=== PATIENT | male | born 1950 | race Caucasian/White ===

== ENCOUNTER 2017-01-14 03:20 | Observation (INO) | payer OTHER ==
[~2017-01-14] VITALS: Ht 182.9 cm; Wt 116.3 kg
[2017-01-14 04:10] LABS: HEMATOCRIT 36.1 % (38.0-50.0); MCH 28.5 PG (29.0-34.0); MCHC 34.1 G/DL (30.0-36.0); MCV 83.6 FL (86-99); MEAN PLAT.VOLUME 9.6 uM^3 (9.0-12.4); PLATELET COUNT 177 K/uL (156-360); RBC DIS.WIDTH-CV 13.7 % (11.8-14.6); RBC DIS.WIDTH-SD 40.7 % (39-53); RED BLOOD COUNT 4.32 M/uL (4.00-5.50); WHITE BLOOD COUNT 10.4 K/uL (4.1-10.2)
[2017-01-14 04:18] LABS: CHLORIDE 104 mEq/L (99-109); POTASSIUM 4.4 mEq/L (3.7-5.4); SODIUM 138 mEq/L (136-147)
[2017-01-14 04:20] LABS: GLUCOSE 223 mg/dL (70-99)
[2017-01-14 04:21] LABS: ANION GAP 11 MEQ/L (2-14)
[2017-01-14 04:22] LABS: TOTAL BILIRUBIN 1.4 mg/dL (0.0-1.0)
[2017-01-14 04:23] LABS: ALKALINE PHOSPHATASE 87 IU/L (3-129)
[2017-01-14 04:25] LABS: UREA NITROGEN (BUN) 35 mg/dL (9-23)
[2017-01-14 04:29] LABS: GFR ESTIMATE (CALCULATED) 50 mL/min/
[2017-01-14] MEDS ORDERED: TERAZOSIN HCL10 MG PO (12:42)
[2017-01-14] MEDS ORDERED: LISINOPRIL5 MG PO (12:43)
[2017-01-14] MEDS ORDERED: CLONIDINE HCL0.2 MG PO (12:43)
[2017-01-14] MEDS ORDERED: PANTOPRAZOLE SO40 MG PO (12:43)
[2017-01-14] MEDS ORDERED: LEVO-T75 MCG PO (12:43)
[2017-01-14] MEDS ORDERED: COLCRYS0.6 MG PO (12:44)
[2017-01-14] MEDS ORDERED: METHADONE10 MG PO (12:44)
[2017-01-14] MEDS ORDERED: ASPIR-TRIN325 M1 PO (12:44)
[2017-01-14] MEDS ORDERED: ALLOPURINOL300 MG PO (12:45)
[2017-01-14] MEDS ORDERED: GABAPENTIN300 MG PO (12:45)
[2017-01-14] MEDS ORDERED: PROGRAF1 MG PO (12:45)
[2017-01-14] MEDS ORDERED: HYDROCHLOROTHIA25 MG PO (12:46)
[2017-01-14] MEDS ORDERED: HYDROCODON-ACE1 EAC9 PO (12:46)
[2017-01-14 16:40] LABS: TROP-I INTERPRETATION NEGATIVE; TROPONIN-I 0.06 ng/mL (0.0-0.30)
[2017-01-14 17:01] LABS: Estimated Average Glucose 143 mg/dL (70-123); HEMOGLOBIN A1c (GLYCOHEMOGLOB) 6.6 % HGB (Below 5.7)
[2017-01-14 17:46] LABS: POINT-OF-CARE METER ID UU14162513
[2017-01-14 19:30] VITALS: BP 132/64
[2017-01-14 21:38] LABS: POINT-OF-CARE METER ID UU13113831
[2017-01-14 22:27] LABS: TROP-I INTERPRETATION NEGATIVE; TROPONIN-I 0.07 ng/mL (0.0-0.30)
[2017-01-15 00:10] VITALS: BP 95/58; BP 98/58
[2017-01-15 03:59] VITALS: BP 100/56
[2017-01-15 06:33] LABS: ANION GAP 10 MEQ/L (2-14); CHLORIDE 103 MEQ/L (99-109); GFR ESTIMATE (CALCULATED) 32 mL/min/; GLUCOSE 140 mg/dL (70-99); POTASSIUM 4.5 MEQ/L (3.7-5.4); SAMPLE HEMOLYSIS CHECK 0; SAMPLE ICTERIC CHECK 0; SAMPLE LIPEMIA CHECK 0; SODIUM 137 MEQ/L (136-147); UREA NITROGEN (BUN) 47 mg/dL (9-23)
[2017-01-15 09:12] VITALS: BP 145/70
[2017-01-15 12:38] LABS: ANION GAP 10 MEQ/L (2-14); CHLORIDE 104 MEQ/L (99-109); GFR ESTIMATE (CALCULATED) 38 mL/min/; GLUCOSE 145 mg/dL (70-99); POTASSIUM 4.3 MEQ/L (3.7-5.4); SAMPLE HEMOLYSIS CHECK 0; SAMPLE ICTERIC CHECK 0; SAMPLE LIPEMIA CHECK 0; SODIUM 137 MEQ/L (136-147); UREA NITROGEN (BUN) 53 mg/dL (9-23)
[2017-01-15 12:44] LABS: POINT-OF-CARE METER ID UU13113700
[2017-01-15 12:50] VITALS: BP 131/61
== END 2017-01-15 15:00 | disposition home or self-care (01) ==
LOC: EME 03:20 → EDOF 13:06 → 5WEST 13:06
PROVIDERS: Emergency Medicine; Internal Medicine; Nurse Practitioner Family; Student in an Organized Health Care Education/Training Program
DX: I16.0 Hypertensive urgency (principal); I10 Essential (primary) hypertension; G43.919 Migraine, unspecified, intractable, without status migrainosus; Z91.19 Patient's noncompliance with other medical treatment and regimen; N17.9 Acute kidney failure, unspecified; E11.9 Type 2 diabetes mellitus without complications; E66.9 Obesity, unspecified; Z94.4 Liver transplant status
CPT/HCPCS: 70450; 80048; 80048 91; 80053; 80197 90; 82948; 83036; 84484; 85027; 93005; 99281; 99285; G0378; J0360; J1100; J1200; J1644; J1815; J1885; J2060; J2405; J2765; J2930; J3475; J7030; J7507; S0028